=== PATIENT | female | born 1940 | race Caucasian/White ===

== ENCOUNTER 2018-06-04 03:55 | Emergency (ER) | payer MEDICAID ==
[~2018-06-04] VITALS: Ht 154.9 cm; Wt 59.0 kg
[2018-06-04 05:46] VITALS: BP 155/79
== END 2018-06-04 05:47 | disposition home or self-care (01) ==
LOC: ER 03:55
DX: E11.649 Type 2 diabetes mellitus with hypoglycemia without coma (principal); I10 Essential (primary) hypertension
CPT/HCPCS: 82962; 99283

== ENCOUNTER 2019-04-01 00:21 | Emergency (ER) | payer MEDICAID ==
[~2019-04-01] VITALS: Ht 152.4 cm; Wt 50.0 kg
[2019-04-01 04:55] VITALS: BP 154/65
== END 2019-04-01 05:33 | disposition home or self-care (01) ==
LOC: ER 00:21
DX: E11.649 Type 2 diabetes mellitus with hypoglycemia without coma (principal); I10 Essential (primary) hypertension
CPT/HCPCS: 82962; 99283

== ENCOUNTER 2019-04-30 01:43 | Emergency (ER) | payer MEDICAID ==
[~2019-04-30] VITALS: Ht 162.6 cm; Wt 62.0 kg
[2019-04-30] MEDS ORDERED: DEXTROSE 50% WATER 50ML SYRINGE IV ONE (02:06)
[2019-04-30] MEDS ORDERED: SODIUM CHLORIDE 0.9% 1,000 ML IV ONE (02:10)
[2019-04-30 02:46] LABS: BASOPHILS % 0.5 % (0.0-2.0); EOSINOPHILS % 1.4 % (0.0-5.0); HEMATOCRIT. 32.9 % (36.0-48.0); HEMOGLOBIN. 11.3 g/dL (12.0-16.0); LYMPHOCYTES % 14.5 % (20.0-50.0); MEAN CORPUSCULAR HEMOGLOBIN 28.5 pg (28.0-32.0); MEAN CORPUSCULAR VOLUME 83.1 fL (81.0-99.0); MEAN PLATELET VOLUME 8.1 fl (7.4-10.4); MONOCYTES % 5.1 % (2.0-8.0); NEUTROPHILS % 78.5 % (40.0-76.0); PLATELET 308 x1000/uL (130-400); RED BLOOD CELL COUNT 3.96 mill/uL (4.2-5.4); RED CELL DISTRIBUTION WIDTH 15.3 % (11.6-14.6)
[2019-04-30 02:55] LABS: CHLORIDE 104 mEq/L (98-107)
[2019-04-30 03:01] LABS: ETHANOL BLOOD < 10 mg/dL
[2019-04-30 03:25] LABS: CLARITY URINE CLEAR (CLEAR); COLOR URINE YELLOW (YELLOW); KETONES URINE NEGATIVE (NEGATIVE); LEUKOCYTE ESTERASE URINE TRACE (NEGATIVE); NITRITE URINE NEGATIVE (NEGATIVE); OCCULT BLOOD URINE 1+ (NEGATIVE); PH URINE 6.5 (4.5-8.0); PROTEIN URINE 1+ (NEGATIVE); SPECIFIC GRAVITY URINE 1.008 (1.005-1.030); UROBILINOGEN URINE 0.2 E.U./dL (0.2-1.0)
[2019-04-30 03:44] LABS: *BARBITURATES SCREEN URINE NEGATIVE (NEGATIVE); *BENZODIAZEPINES SCREEN URINE NEGATIVE (NEGATIVE); *COCAINE SCREEN URINE NEGATIVE (NEGATIVE); METHADONE URINE SCREEN NEGATIVE (NEGATIVE); OPIATES URINE SCREEN NEGATIVE (NEGATIVE)
[2019-04-30 03:45] LABS: *AMPHETAMINES SCREEN URINE NEGATIVE (NEGATIVE); CANNABINOID URINE SCREEN NEGATIVE (NEGATIVE); PHENCYCLIDINE URINE SCREEN NEGATIVE (NEGATIVE)
[2019-04-30 04:05] VITALS: BP 155/58
== END 2019-04-30 04:06 | disposition home or self-care (01) ==
LOC: ER 01:43
DX: E11.649 Type 2 diabetes mellitus with hypoglycemia without coma (principal); R31.29 Other microscopic hematuria; Z79.4 Long term (current) use of insulin; I10 Essential (primary) hypertension
CPT/HCPCS: 36415; 80053; 80305; 80320; 81003; 82962; 83690; 84443; 85025; 93005; 96360; 99284; J7030; G0480

== ENCOUNTER 2020-03-14 11:39 | Emergency (ER) | payer MEDICAID ==
[~2020-03-14] VITALS: Ht 149.9 cm; Wt 43.0 kg
[2020-03-14] MEDS ORDERED: CLONIDINE 0.2MG TABLET PO ONE (12:30)
[2020-03-14] MEDS ORDERED: DEXTROSE 50% WATER 50ML SYRINGE IV ONE (12:45)
[2020-03-14 13:00] LABS: BASOPHILS % 0.8 % (0.0-2.0); EOSINOPHILS % 2.6 % (0.0-5.0); HEMATOCRIT. 34.4 % (36.0-48.0); HEMOGLOBIN. 11.7 g/dL (12.0-16.0); LYMPHOCYTES % 30.5 % (20.0-50.0); MEAN CORPUSCULAR HEMOGLOBIN 29.4 pg (28.0-32.0); MEAN CORPUSCULAR VOLUME 86.1 fL (81.0-99.0); MEAN PLATELET VOLUME 8.2 fl (7.4-10.4); MONOCYTES % 6.6 % (2.0-8.0); NEUTROPHILS % 59.5 % (40.0-76.0); PLATELET 338 x1000/uL (130-400); RED BLOOD CELL COUNT 3.99 mill/uL (4.2-5.4); RED CELL DISTRIBUTION WIDTH 14.8 % (11.6-14.6)
[2020-03-14 13:09] LABS: CHLORIDE 109 mEq/L (98-107)
[2020-03-14 14:31] VITALS: BP 146/80
[2020-03-14] MEDS ORDERED: HYDRALAZINE 20MG/ML VIAL IV PRN (14:45)
== END 2020-03-14 14:35 | disposition home or self-care (01) ==
LOC: ER 11:39
DX: I10 Essential (primary) hypertension (principal); E11.649 Type 2 diabetes mellitus with hypoglycemia without coma
CPT/HCPCS: 36415; 80053; 82962; 83036; 83735; 83880; 85025; 93005; 96374; 99284

== ENCOUNTER 2022-12-10 13:37 | Emergency (ER) | payer MEDICAID ==
[~2022-12-10] VITALS: Ht 165.1 cm; Wt 50.0 kg
[2022-12-10] MEDS ORDERED: SODIUM CHLORIDE 0.9% 1000ML BAG (SEPSIS BOLUS) IV ONE (14:00)
[2022-12-10] MEDS ORDERED: DEXTROSE 50% WATER 50ML SYRINGE IV ONE ×2 (14:00→15:00)
[2022-12-10 14:15] LABS: BASOPHILS % 0.3 % (0.0-2.0); EOSINOPHILS % 1.1 % (0.0-5.0); HEMATOCRIT. 26.5 % (36.0-48.0); LYMPHOCYTES % 18.7 % (20.0-50.0); MEAN CORPUSCULAR HEMOGLOBIN 29.9 pg (28.0-32.0); MEAN CORPUSCULAR VOLUME 88.4 fL (81.0-99.0); MEAN PLATELET VOLUME 9.1 fl (7.4-10.4); MONOCYTES % 5.3 % (2.0-8.0); NEUTROPHILS % 74.6 % (40.0-76.0); PLATELET 226 x1000/uL (130-400); RED BLOOD CELL COUNT 2.99 mill/uL (4.2-5.4)
[2022-12-10] MEDS ORDERED: HYDRALAZINE 20MG/ML VIAL IV ONE (14:15)
[2022-12-10 14:21] LABS: PROTHROMBIN TIME 11.2 sec (9.6-11.0)
[2022-12-10 14:38] LABS: CHLORIDE 111 mEq/L (98-107)
[2022-12-10] MEDS ORDERED: CLONIDINE 0.2MG TABLET PO ONE (16:45)
[2022-12-10 23:55] LABS: CLARITY URINE CLOUDY (CLEAR); COLOR URINE YELLOW (YELLOW); KETONES URINE NEGATIVE (NEGATIVE); LEUKOCYTE ESTERASE URINE NEGATIVE (NEGATIVE); NITRITE URINE NEGATIVE (NEGATIVE); OCCULT BLOOD URINE NEGATIVE (NEGATIVE); PROTEIN URINE 3+ (NEGATIVE); SPECIFIC GRAVITY URINE 1.014 (1.005-1.030); UROBILINOGEN URINE 0.2 E.U./dL (0.2-1.0)
[2022-12-11 01:38] VITALS: BP 142/59
== END 2022-12-11 02:33 | disposition short-term general hospital (02) ==
LOC: ER 14:15
DX: E11.649 Type 2 diabetes mellitus with hypoglycemia without coma (principal); I10 Essential (primary) hypertension; E78.00 Pure hypercholesterolemia, unspecified; Z20.822 Contact with and (suspected) exposure to COVID-19
CPT/HCPCS: 36415; 70450; 71045; 80053; 81003; 82962; 83605; 83880; 84145; 84484; 85025; 85610; 86850; 86900; 86901; 87040; 87086; 87426; 93005; 96361; 96374; 96375; 99291; C9803; J0360; J7030; Z7610

== ENCOUNTER 2025-05-16 07:28 | Inpatient (IN) | payer MEDICAID, OTHER ==
[~2025-05-16] VITALS: Ht 152.4 cm; Wt 41.9 kg
[2025-05-16] VITALS (14 sets, daily range): BP systolic 92–185; BP diastolic 52–88; PULSE 54–68; RESP 19–22; TEMP 36.4–36.6; O2SAT 93–100
[2025-05-16] MEDS: ASPIRIN 325MG TABLET PO ONE (07:46)
[2025-05-16 08:10] LABS: BASOPHILS % 1.0 % (0.0-2.0); EOSINOPHILS % 1.7 % (0.0-5.0); HEMATOCRIT. 33.5 % (36.0-48.0); HEMOGLOBIN. 11.4 g/dL (12.0-16.0); LYMPHOCYTES % 23.6 % (20.0-50.0); MEAN PLATELET VOLUME 8.3 fl (7.4-10.4); MONOCYTES % 7.1 % (2.0-8.0); NEUTROPHILS % 66.6 % (40.0-76.0); PLATELET 223 x1000/uL (130-400); RED BLOOD CELL COUNT 3.68 mill/uL (4.2-5.4); RED CELL DISTRIBUTION WIDTH 14.1 % (11.6-14.6)
[2025-05-16 08:32] LABS: TROPONIN I HIGH SENSITIVITY 13 ng/L (3.0-34); UREA NITROGEN BLOOD 65 mg/dL (9-23)
[2025-05-16 08:37] LABS: CREATININE 6.2 mg/dL (0.6-1.0)
[2025-05-16] MEDS: FUROSEMIDE 40MG/4ML VIAL IVP ONE (09:26)
[2025-05-16] MEDS ORDERED: GUAIFENESIN 200MG/10ML SUGAR FREE UDC PO PRN (10:00)
[2025-05-16] MEDS ORDERED: ACETAMINOPHEN 325MG TABLET PO PRN (10:00)
[2025-05-16] MEDS ORDERED: DOCUSATE SODIUM 100MG CAPSULE PO PRN (10:00)
[2025-05-16] MEDS ORDERED: IPRATROPIUM/ALBUTEROL 0.5-3(2.5)MG/3ML NEB HHN PRN (10:00)
[2025-05-16] MEDS ORDERED: ONDANSETRON HCL 4MG/2ML INJ IV PRN (10:00)
[2025-05-16] MEDS ORDERED: NIFE-71 PO (10:28)
[2025-05-16] MEDS ORDERED: SEVE800T25 PO (10:28)
[2025-05-16] MEDS ORDERED: PANT40TA51 PO (10:28)
[2025-05-16] MEDS ORDERED: GABA-529 PO (10:28)
[2025-05-16] MEDS ORDERED: CLON0.1T PO (10:28)
[2025-05-16] MEDS ORDERED: LINA5TAB PO (10:28)
[2025-05-16] MEDS ORDERED: CARV25TA47 PO (10:28)
[2025-05-16] MEDS ORDERED: LOSA50TA41 PO (10:28)
[2025-05-16] MEDS ORDERED: HUM100IN SUBCUT (10:29)
[2025-05-16] MEDS ORDERED: DEXTROSE 50% WATER 50ML SYRINGE IV PRN (10:30)
[2025-05-16] MEDS: LOSARTAN 50 MG TABLET PO SCH (11:45)
[2025-05-16] MEDS: PANTOPRAZOLE 40MG DR TABLET PO SCH (11:45)
[2025-05-16] MEDS ORDERED: ENOXAPARIN 30MG/0.3ML SYR SUBCUT SCH (12:00)
[2025-05-16] MEDS: BLOOD SUGAR DIAGNOSTIC STRIP TEST SCH (12:28)
[2025-05-16 12:52] LABS: ASPARTATE AMINOTRANSFERASE 26 IU/L (<34); BILIRUBIN DIRECT < 0.1 mg/dL (<=3.0); BILIRUBIN TOTAL 0.3 mg/dL (0.1-1.0); PHOSPHORUS 2.7 mg/dL (2.5-4.9); PROTEIN TOTAL 6.4 g/dL (6.0-8.3)
[2025-05-16] MEDS: SEVELAMER CARBONATE 800 MG TABLET PO SCH (12:56)
[2025-05-16] MEDS: HYDRALAZINE 20MG/ML VIAL IV PRN (12:57)
[2025-05-16] MEDS: INSULIN LISPRO 100 UNITS/ML SUBCUT SCH (13:03)
[2025-05-16 13:27] LABS: HEPATITIS A AB IGM NEGATIVE (Negative)
[2025-05-16 13:28] LABS: HEPATITIS B CORE AB IGM NEGATIVE (Negative); HEPATITIS C AB NON REACTIVE (Neg) (Negative)
[2025-05-16] MEDS: ISOSORBIDE MONONITRATE 30MG TABLET SR 24HR PO SCH ×2 (13:34→19:05)
[2025-05-16] MEDS: NIFEDIPINE XL 60MG TAB PO SCH (16:33)
[2025-05-16] MEDS: CARVEDILOL 6.25 MG TABLET PO SCH (17:46)
[2025-05-16] MEDS: NIFEDIPINE XL 30MG TAB PO SCH (17:46)
[2025-05-16] MEDS: ACETAMINOPHEN 325MG TABLET PO PRN (17:47)
[2025-05-16] MEDS: MORPHINE SULFATE 10 MG/ML INJ (NOT FOR IM USE) IV NR (19:11)
[2025-05-16] MEDS ORDERED: MORPHINE SULFATE 10 MG/ML INJ (NOT FOR IM USE) IV PRN (19:15)
[2025-05-16 21:26] LABS: TROPONIN I HIGH SENSITIVITY 10 ng/L (3.0-34)
[2025-05-16 21:29] LABS: INR 1.0
[2025-05-16] MEDS: GABAPENTIN 100MG CAPSULE PO SCH (22:08)
[2025-05-16] MEDS: ATORVASTATIN CALCIUM 20MG TABLET PO SCH (22:08)
[2025-05-16] MEDS: NITROGLYCERIN 0.4MG TABLET SL SL NR (22:30)
[2025-05-16] MEDS ORDERED: NALOXONE HCL 0.4MG/ML VIAL IV PRN (22:30)
[2025-05-17] VITALS (11 sets, daily range): BP systolic 115–170; BP diastolic 59–75; PULSE 64–77; RESP 14–20; TEMP 36.2–36.8; O2SAT 96–99
[2025-05-17 06:12] LABS: TRIGLYCERIDE 99.0 mg/dL (0-150); UREA NITROGEN BLOOD 29.0 mg/dL (9-23)
[2025-05-17 06:13] LABS: LDL CHOLESTEROL 93.0 mg/dL (5-100); TROPONIN I HIGH SENSITIVITY 9.0 ng/L (3.0-34)
[2025-05-17 06:17] LABS: T4 FREE 1.12 ng/dL (0.89-1.76)
[2025-05-17 06:38] LABS: CREATININE 4.2 mg/dL (0.6-1.0)
[2025-05-17 06:39] LABS: BASOPHILS % 0.7 % (0.0-2.0); EOSINOPHILS % 1.0 % (0.0-5.0); HEMATOCRIT. 30.1 % (36.0-48.0); HEMOGLOBIN. 10.3 g/dL (12.0-16.0); LYMPHOCYTES % 22.3 % (20.0-50.0); MEAN PLATELET VOLUME 7.8 fl (7.4-10.4); MONOCYTES % 6.5 % (2.0-8.0); NEUTROPHILS % 69.5 % (40.0-76.0); PLATELET 199 x1000/uL (130-400); RED BLOOD CELL COUNT 3.28 mill/uL (4.2-5.4); RED CELL DISTRIBUTION WIDTH 14.2 % (11.6-14.6)
[2025-05-17] MEDS: ENOXAPARIN 30MG/0.3ML SYR SUBCUT SCH (09:00)
[2025-05-17] MEDS: CARVEDILOL 12.5MG TABLET PO SCH (09:13)
[2025-05-17] MEDS: FUROSEMIDE 40MG/4ML VIAL IV SCH (09:13)
[2025-05-17] MEDS: NIFEDIPINE XL 90MG TAB PO SCH (09:14)
[2025-05-17] MEDS: ASPIRIN 81MG EC TABLET PO SCH (09:14)
[2025-05-17] MEDS ORDERED: LIDOCAINE HCL 1% 20ML VIAL ONE (12:15)
[2025-05-17] MEDS ORDERED: FENTANYL CITRATE/PF 50MCG/ML 2ML VIAL ONE (12:15)
[2025-05-17] MEDS ORDERED: MIDAZOLAM HCL 2 MG/2 ML VIAL ONE (12:15)
[2025-05-17] MEDS ORDERED: DIPHENHYDRAMINE 50MG/ML VIAL ONE (12:15)
[2025-05-17] MEDS ORDERED: IODIXANOL 320MG/ML 100 ML BOTTLE IV ONE (12:15)
[2025-05-17] MEDS ORDERED: HEPARIN 1000 UNITS/ML 10ML ONE (12:15)
[2025-05-17] MEDS ORDERED: ATROPINE SULFATE 1MG/10ML SYR IV PRN (14:15)
[2025-05-17] MEDS ORDERED: ACETAMINOPHEN 325MG TABLET PO PRN (14:15)
[2025-05-18 00:15] VITALS: BP 145/73; PULSE 72; RESP 15; TEMP 36.7; O2SAT 98
[2025-05-18 04:00] VITALS: BP 147/66; PULSE 87; RESP 21; TEMP 36.4; O2SAT 97
[2025-05-18 06:33] LABS: BASOPHILS % 0.5 % (0.0-2.0); EOSINOPHILS % 0.5 % (0.0-5.0); HEMATOCRIT. 31.1 % (36.0-48.0); HEMOGLOBIN. 10.8 g/dL (12.0-16.0); LYMPHOCYTES % 13.2 % (20.0-50.0); MEAN PLATELET VOLUME 7.8 fl (7.4-10.4); MONOCYTES % 6.5 % (2.0-8.0); NEUTROPHILS % 79.3 % (40.0-76.0); PLATELET 199 x1000/uL (130-400); RED BLOOD CELL COUNT 3.43 mill/uL (4.2-5.4); RED CELL DISTRIBUTION WIDTH 14.2 % (11.6-14.6)
[2025-05-18 06:49] LABS: CREATININE 3.2 mg/dL (0.6-1.0); UREA NITROGEN BLOOD 21.0 mg/dL (9-23)
[2025-05-18 08:00] VITALS: BP 176/74; PULSE 91; RESP 22; TEMP 36.1; O2SAT 96
[2025-05-18] MEDS: POTASSIUM CHLORIDE 20MEQ TABLET SR PO SCH (08:34)
[2025-05-18] MEDS: FAMOTIDINE 20MG TABLET PO SCH (08:36)
[2025-05-18] MEDS ORDERED: NIFE90TA60 PO (10:42)
[2025-05-18] MEDS ORDERED: ISOS30TA91 PO (10:42)
[2025-05-18] MEDS ORDERED: ATOR20TA PO (10:42)
[2025-05-18] MEDS ORDERED: ASPI-1497 MT (10:42)
[2025-05-18 12:00] VITALS: BP 134/60; PULSE 75; RESP 17; TEMP 36.7; O2SAT 98
[2025-05-18] MEDS: ISOSORBIDE MONONITRATE 30MG TABLET SR 24HR PO SCH (13:05)
[2025-05-18 16:00] VITALS: BP 120/65; PULSE 80; RESP 20; TEMP 36.8; O2SAT 99
[2025-05-18 17:52] VITALS: BP 123/59; PULSE 77; RESP 13; TEMP 99
[2025-05-19] MEDS ORDERED: ISOSORBIDE MONONITRATE 60MG TABLET SR 24HR PO SCH (09:00)
== END 2025-05-18 18:52 | disposition home or self-care (01) | DRG 192 ==
LOC: ER 07:28 → 3WST 09:13 → EDBEDREQ 09:16 → EDBEDREQTM 09:16 → ENRESERV 09:42
PROVIDERS: ADMIT Internal Medicine; ATTEND Internal Medicine
PROC: 5A1D70Z Performance of Urinary Filtration, Intermittent, Less than 6 Hours Per Day (ICD-10-PCS; 2025-05-16)
PROC: 4A023N7 Measurement of Cardiac Sampling and Pressure, Left Heart, Percutaneous Approach (ICD-10-PCS; principal; 2025-05-17)
PROC: B211YZZ Fluoroscopy of Multiple Coronary Arteries using Other Contrast (ICD-10-PCS; 2025-05-17)
PROC: B41FYZZ Fluoroscopy of Right Lower Extremity Arteries using Other Contrast (ICD-10-PCS; 2025-05-17)
PROC: 5A1D70Z Performance of Urinary Filtration, Intermittent, Less than 6 Hours Per Day (ICD-10-PCS; 2025-05-17)
DX: I13.2 Hypertensive heart and chronic kidney disease with heart failure and with stage 5 chronic kidney disease, or end stage renal disease (principal); E44.0 Moderate protein-calorie malnutrition; N18.6 End stage renal disease; E83.51 Hypocalcemia; E87.1 Hypo-osmolality and hyponatremia; D63.8 Anemia in other chronic diseases classified elsewhere; I25.110 Atherosclerotic heart disease of native coronary artery with unstable angina pectoris; I50.31 Acute diastolic (congestive) heart failure; E11.22 Type 2 diabetes mellitus with diabetic chronic kidney disease; E78.00 Pure hypercholesterolemia, unspecified; Z68.1 Body mass index [BMI] 19.9 or less, adult; Z99.2 Dependence on renal dialysis; Z79.4 Long term (current) use of insulin; Z79.82 Long term (current) use of aspirin; Z79.899 Other long term (current) drug therapy
CPT/HCPCS: 36415; 71045; 80048; 80061; 80076; 82550; 82728; 82962; 83036; 83540; 83550; 83735; 83880; 84100; 84439; 84443; 84484; 85025; 85379; 86705; 86709; 86850; 86900; 87070; 87340; 90935; 93005; 93306; 93458; 93970; 97116; 97162; 97166; 99291; A4606; C1769; C1887; C1893; J0360; J1200; J1644; J1815; J1938; J2003; J2250; J3010; Q9967

== ENCOUNTER 2025-05-31 20:54 | Emergency (ER) | payer OTHER ==
[~2025-05-31] VITALS: Ht 154.9 cm; Wt 41.0 kg
[~2025-05-31 20:54] MED LIST: ASPI-1497 MT; ATOR20TA PO; CARV25TA47 PO; CLON0.1T PO; GABA-529 PO; HUM100IN SUBCUT; ISOS30TA91 PO; LINA5TAB PO; LOSA50TA41 PO; NIFE90TA60 PO; PANT40TA51 PO; SEVE800T25 PO
[2025-05-31 21:03] VITALS: O2SAT 98
[2025-05-31 22:56] LABS: BASOPHILS % 0.7 % (0.0-2.0); EOSINOPHILS % 2.1 % (0.0-5.0); HEMATOCRIT. 27.6 % (36.0-48.0); HEMOGLOBIN. 9.6 g/dL (12.0-16.0); LYMPHOCYTES % 19.5 % (20.0-50.0); MEAN PLATELET VOLUME 8.2 fl (7.4-10.4); MONOCYTES % 9.5 % (2.0-8.0); NEUTROPHILS % 68.2 % (40.0-76.0); PLATELET 262 x1000/uL (130-400); RED BLOOD CELL COUNT 3.05 mill/uL (4.2-5.4); RED CELL DISTRIBUTION WIDTH 14.0 % (11.6-14.6)
[2025-05-31 23:03] LABS: INR 1.0
[2025-05-31 23:06] LABS: UREA NITROGEN BLOOD 34.0 mg/dL (9-23)
[2025-05-31 23:09] LABS: CREATININE 5.1 mg/dL (0.6-1.0)
[2025-05-31 23:26] VITALS: BP 133/58; PULSE 72; RESP 16; TEMP 36.6; O2SAT 99
== END 2025-05-31 23:55 | disposition home or self-care (01) ==
LOC: ER 20:54
DX: S41.112A Laceration without foreign body of left upper arm, initial encounter (principal); E11.22 Type 2 diabetes mellitus with diabetic chronic kidney disease; I12.0 Hypertensive chronic kidney disease with stage 5 chronic kidney disease or end stage renal disease; E78.00 Pure hypercholesterolemia, unspecified; N18.6 End stage renal disease; Z99.2 Dependence on renal dialysis; Z79.899 Other long term (current) drug therapy; Z79.84 Long term (current) use of oral hypoglycemic drugs; Z79.82 Long term (current) use of aspirin; Z79.4 Long term (current) use of insulin
CPT/HCPCS: 36415; 80048; 85025; 93005; 99284